=== PATIENT | female | born 1990 | race Caucasian/White ===

== ENCOUNTER 2023-11-09 00:08 | Emergency (ER) | payer SELFPAY ==
[~2023-11-09] VITALS: Ht 162.5 cm; Wt 97.5 kg
[2023-11-09] MEDS ORDERED: Ondansetron Hydrochloride 4 MG TAB SL ONE (00:30)
[2023-11-09] MEDS ORDERED: Acetaminophen/Hydrocodone 5 MG/325 MG TABLET PO ONE (00:30)
[2023-11-09] MEDS ORDERED: Tdap Vaccine 0.5 ML SYR (Adult Vaccine) IM ONE (00:30)
[2023-11-09] MEDS ORDERED: NAPROXEN250 MG PO (01:04)
[2023-11-09] MEDS ORDERED: Bacitracin Zinc 14 GM TUBE T ONE (01:05)
== END 2023-11-09 01:07 | disposition home or self-care (01) ==
LOC: ED 00:08
DX: S80.01XA Contusion of right knee, initial encounter (principal); S50.311A Abrasion of right elbow, initial encounter; S80.212A Abrasion, left knee, initial encounter; S80.211A Abrasion, right knee, initial encounter; W19.XXXA Unspecified fall, initial encounter; Y93.89 Activity, other specified; Y92.89 Other specified places as the place of occurrence of the external cause; Y99.8 Other external cause status